=== PATIENT | female | born 1970 | race Two or more races ===

== ENCOUNTER 2023-04-18 01:16 | Emergency (ER) | payer OTHER ==
[~2023-04-18] VITALS: Ht 167.6 cm; Wt 90.7 kg
[2023-04-18] MEDS ORDERED: GLUMETZA500 MG PO (01:26)
[2023-04-18] MEDS ORDERED: ATORVASTATIN CA10 MG PO (01:26)
[2023-04-18] MEDS ORDERED: ACID REDUCER20 M1 PO (01:26)
[2023-04-18] MEDS ORDERED: ONDANSETRON4 MG/2 M1 (01:26)
[2023-04-18] MEDS ORDERED: METHOCARBAMOL500 MG PO (01:27)
[2023-04-18] MEDS ORDERED: AMITRIPTYLINE HC5 GM MC (01:27)
[2023-04-18 03:42] LABS: HEMATOCRIT 40.1 % (36.0-45.00); HEMOGLOBIN 13.6 g/dL (12.0-15.00); MEAN CELL VOLUME 81.5 fL (80.00-100.00); MEAN CORPUSCULAR HEMOGLOBIN 27.6 pg (27.00-32.0); MEAN CORPUSCULAR HGB CONC 33.8 g/dl (32.0-36.0); PLATELET COUNT 240 K/uL (150-450); RED BLOOD COUNT 4.92 M/uL (4.00-6.00); RED CELL DISTRIBUTION WIDTH 14.2 % (11.5-14.5)
[2023-04-18 04:41] LABS: ALBUMIN 3.8 gm/dL (3.4-5.0); BILIRUBIN TOTAL 0.79 mg/dL (0.3-1.2); CALCIUM 9.7 mg/dL (8.5-10.1); CREATININE SERUM 1.08 mg/dL (0.55-1.02); GFR 53.7; GLOBULINA 3.7 G/DL (2.4-3.5); POTASSIUM 3.38 mEq/L (3.5-5.1); TOTAL PROTEIN 7.5 gm/dL (6.4-8.2)
== END 2023-04-18 08:49 | disposition home or self-care (01) ==
LOC: ER 01:16
DX: K29.70 Gastritis, unspecified, without bleeding (principal); E11.43 Type 2 diabetes mellitus with diabetic autonomic (poly)neuropathy; K31.84 Gastroparesis; Z79.84 Long term (current) use of oral hypoglycemic drugs